=== PATIENT | female | born 1990 | race Caucasian/White ===

== ENCOUNTER 2017-01-31 21:05 | Emergency (ER) | payer BC, MEDICAID, OTHER ==
[2017-01-31 21:31] VITALS: RESP 16; O2SAT 99
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
[2017-01-31] MEDS ORDERED: SULFAMETHOX/TMP 800/160 MG 1 TAB PO ONE (22:28)
[2017-01-31 22:44] VITALS: BP 133/87; PULSE 92; TEMP 97.9
== END 2017-01-31 23:00 | disposition home or self-care (01) ==
LOC: EEVIPCON 21:05
DX: L98.9 Disorder of the skin and subcutaneous tissue, unspecified (principal)

== ENCOUNTER 2017-02-06 06:02 | Inpatient (IN) | payer MEDICAID ==
[2017-02-06 06:25] LABS: % IMMATURE GRANULYOCYTES 0.5 % (0.0-1.1); ADD DIFF? NO; ADD MORPH? NO; ADD SCAN? NO; ATYPICAL LYMPHOCYTE FLAG 0 (0-99); FRAGMENT RBC FLAG 0 (0-99); HEMATOCRIT 37.8 % (38.0-47.0); HEMOGLOBIN 13.4 g/dL (12.6-16.3); LEFT SHIFT FLG 0 (0-99); LIPEMIA HEMOLYSIS FLAG 90 (0-99); MEAN CELL HEMOGLOBIN 31.5 pg (27.9-34.1); MEAN CELL HEMOGLOBIN CONCENTR. 35.4 g/dL (32.4-36.7); MEAN CELL VOLUME 88.9 fL (81.5-99.8); MEAN PLATELET VOLUME 9.1 fL (8.7-11.7); PLATELET CLUMPS FLAG 0 (0-99); PLATELET COUNT 439 10^3/uL (150-400); RED BLOOD CELL COUNT 4.25 10^6/uL (4.18-5.33); RED CELL DISTRIBUTION WIDTH 13.2 % (11.5-15.2)
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
[2017-02-06 06:54] LABS: ALANINE AMINOTRANSFERASE 63 IU/L (9-52); ALBUMIN 4.7 g/dL (3.5-5.0); ALKALINE PHOSPHATASE 82 IU/L (38-126); ANION GAP 21 mEq/L (8-16); ASPARTATE AMINOTRANSFERASE 156 IU/L (14-46); BILIRUBIN,TOTAL 1.4 mg/dL (0.1-1.4); CALCIUM 9.1 mg/dL (8.5-10.4); CARBON DIOXIDE 13 mEq/l (22-31); CHLORIDE 105 mEq/L (97-110); CREATININE 1.3 mg/dL (0.6-1.0); ETHANOL SERUM < 10 mg/dL (0-10); GLOMERULAR FILTRATION RATE 49; GLUCOSE 51 mg/dL (70-100); POTASSIUM 5.1 mEq/L (3.5-5.2); SODIUM 139 mEq/L (134-144); TOTAL PROTEIN 7.4 g/dL (6.3-8.2)
[2017-02-06] MEDS ORDERED: NS 1,000 ML IV ONE ×2 (07:00)
[2017-02-06 08:02] LABS: CK-MB INTERPRETATION NEGATIVE (NEGATIVE)
--- NOTE | 2017-02-06 08:37 | CPEKG ---
Heart Rate: 102 RR Interval: 588 P-R Interval: 120 QRSD Interval: 84 QT Interval: 376 QTC Interval: 490 P Thorndale: 80 QRS Thorndale: 85 T Wave Thorndale: 66 EKG Severity - BORDERLINE ECG - EKG Impression: SINUS TACHYCARDIA EKG Impression: BORDERLINE PROLONGED QT INTERVAL Electronically Signed By: Vic Randolph 06-Feb-2017 08:37:59
[2017-02-06 12:14] LABS: COLOR YELLOW; LEUKOCYTE ESTERASE,URINE NEGATIVE (NEGATIVE); NITRITE,URINE NEGATIVE (NEGATIVE)
[2017-02-06 12:15] LABS: HYALINE CASTS 15-25 /lpf (0-1); MUCUS TRACE /lpf (NONE-1+)
[2017-02-06] MEDS ORDERED: ONDANSETRON DISINTEGRATING 4 MG TAB PO PRN (12:46)
[2017-02-06] MEDS ORDERED: ACETAMINOPHEN 325 MG TAB PO PRN (12:46)
[2017-02-06] MEDS ORDERED: ONDANSETRON 4 MG/2 ML VIAL IVP PRN ×2 (12:46→20:43)
[2017-02-06] MEDS ORDERED: ALBUTEROL INH PREPACK MDI TAKEHOME PRN (12:47)
[2017-02-06] MEDS ORDERED: ALBUTEROL 200 PUFFS/18 GM MDI IH PRN (13:00)
[2017-02-06 13:38] LABS: ANION GAP 13 mEq/L (8-16); CALCIUM 7.7 mg/dL (8.5-10.4); CARBON DIOXIDE 11 mEq/l (22-31); CHLORIDE 111 mEq/L (97-110); CREATININE 0.9 mg/dL (0.6-1.0); GLOMERULAR FILTRATION RATE > 60; GLUCOSE 70 mg/dL (70-100); SODIUM 135 mEq/L (134-144)
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
[2017-02-06] MEDS: NS 1,000 ML IV SCH ×2 (14:26→23:33)
[2017-02-06 15:07] LABS: CK-MB INTERPRETATION NEGATIVE (NEGATIVE)
[2017-02-06] MEDS ORDERED: PROMETHAZINE HCL 25 MG TAB PO PRN (20:42)
[2017-02-06] MEDS ORDERED: PROMETHAZINE HCL 25 MG/ML INJ IVP PRN (20:42)
[2017-02-06] MEDS: PANTOPRAZOLE SODIUM 40 MG TAB PO SCH (20:55)
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
[2017-02-06] MEDS: ADDERALL 10 MG TAB PO SCH (22:16)
[2017-02-06] MEDS: clonazePAM 0.5 MG TAB PO SCH (22:17)
[2017-02-07 05:12] LABS: ANION GAP 11 mEq/L (8-16); CALCIUM 7.9 mg/dL (8.5-10.4); CARBON DIOXIDE 11 mEq/l (22-31); CHLORIDE 112 mEq/L (97-110); CREATININE 0.7 mg/dL (0.6-1.0); GLOMERULAR FILTRATION RATE > 60; GLUCOSE 53 mg/dL (70-100); POTASSIUM 4.5 mEq/L (3.5-5.2); SODIUM 134 mEq/L (134-144)
[2017-02-07 05:32] LABS: CK-MB INTERPRETATION NEGATIVE (NEGATIVE)
[2017-02-07] MEDS: NS 1,000 ML IV SCH (05:50)
[2017-02-07] MEDS: ADDERALL 10 MG TAB PO SCH ×2 (08:45→20:18)
[2017-02-07] MEDS: PANTOPRAZOLE SODIUM 40 MG TAB PO SCH (08:46)
[2017-02-07] MEDS: ENOXAPARIN 40 MG/0.4 ML SYR SC SCH ×2 (08:46→09:06)
[2017-02-07] MEDS: ARIPiprazole 5 MG TAB PO SCH ×2 (08:46→09:07)
[2017-02-07] MEDS: clonazePAM 0.5 MG TAB PO SCH ×2 (08:46→20:18)
[2017-02-07] MEDS ORDERED: NORGESTIMATE ETHINYL ESTRADIOL PO SCH ×2 (09:00)
[2017-02-07] MEDS ORDERED: DEXTROAMPHETAMINE PO SCH (09:00)
[2017-02-07] MEDS ORDERED: AMPHETAMINE PO SCH (09:00)
--- NOTE | 2017-02-07 09:08 | PDINTPN ---
[facility] Progress Note Assessment/Plan: Assessment/plan: * Encephalopathy-still somnolent * Rhabdomyolysis-improved -continue IV fluids * Acute renal failure-resolved * Bipolar disorder * Stress ulcer prophylaxis * DVT PE prophylaxis Subjective: Somnolent. Arousable Objective: Vital Signs Temp Pulse Resp BP Pulse Ox 36.9 C 98 18 93/55 L 97 02/07/17 07:59 02/07/17 07:59 02/07/17 07:59 02/07/17 07:59 02/07/17 07:59 Laboratory Results 02/07/17 04:53 02/06/17 02/07/17 02/08/17 05:59 05:59 05:59 Intake Total 5143 Output Total 500 Balance 4643 Laboratory Results 02/06/17 06:15 02/07/17 04:53 02/07/17 02/07/17 02/06/17 06:22 04:53 13:10 POC Glucose 69 mg/dL L mg/dL (70 - 100) Calcium 7.9 mg/dL L mg/dL (8.5 - 10.4) Creatine Kinase 6050 IU/L H IU/L 7660 IU/L H IU/L (0 - 156) (0 - 156) CK-MB (CK-2) Fraction 92.40 ng/mL H ng/mL 145.00 ng/mL H ng/mL (0 - 3.19) (0 - 3.19) CK-MB (CK-2) % 1.5 % % 1.9 % % (0.0 - 4.0) (0.0 - 4.0) Creatine Kinase Interp NEGATIVE NEGATIVE Physical Exam - Physical Exam General Appearance: other (Somnolent), No alert EENT: PERRL/EOMI, normal ENT inspection Neck: non-tender, full range of motion, supple Respiratory: chest non-tender, lungs clear, normal breath sounds Cardiac/Chest: normal peripheral pulses, regular rate, rhythm Abdomen: normal bowel sounds, non-tender, soft Pelvic Exam: deferred Rectal: deferred ICD10 Worksheet Patient Problems: Problems Problem Status Onset Acute renal failure Acute Encephalopathy acute Acute Rhabdomyolysis Acute Anxiety Acute Major depressive disorder, recurrent episode, moderate with anxious distress Acute
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
[2017-02-07] MEDS: CALCIUM CARBONATE 500 MG CHEWABLE TAB PO PRN (23:40)
--- NOTE | 2017-02-08 08:59 | PDINTPN ---
[facility] Progress Note Assessment/Plan: Assessment/plan: * Encephalopathy-resolved. Patient awake and alert. * Rhabdomyolysis-improved -continue IV fluids -recheck CPK * Acute renal failure-resolved * Bipolar disorder * Stress ulcer prophylaxis * DVT PE prophylaxis * Disposition-patient medically cleared Subjective: Awake and alert and oriented x3. Conversant. In good spirits. Objective: Vital Signs Temp Pulse Resp BP Pulse Ox 36.6 C 88 16 105/63 99 02/08/17 03:58 02/08/17 08:00 02/08/17 08:00 02/08/17 08:00 02/08/17 08:00 Laboratory Results 02/07/17 04:53 02/07/17 02/08/17 02/09/17 05:59 05:59 05:59 Intake Total 5143 350 Output Total 500 Balance 4643 350 Physical Exam - Physical Exam General Appearance: alert, no apparent distress EENT: PERRL/EOMI, normal ENT inspection, pharynx normal, TMs normal Neck: non-tender, full range of motion, supple, normal inspection Respiratory: chest non-tender, lungs clear, normal breath sounds Cardiac/Chest: normal peripheral pulses, regular rate, rhythm Abdomen: normal bowel sounds, non-tender, soft Pelvic Exam: deferred Rectal: deferred Skin: normal color, warm/dry Extremities: normal range of motion, non-tender, normal inspection, normal capillary refill ICD10 Worksheet Patient Problems: Problems Problem Status Onset Acute renal failure Acute Encephalopathy acute Acute Rhabdomyolysis Acute Anxiety Acute Major depressive disorder, recurrent episode, moderate with anxious distress Acute
[2017-02-08] MEDS: ADDERALL 10 MG TAB PO SCH ×2 (09:20→14:57)
[2017-02-08] MEDS: clonazePAM 0.5 MG TAB PO SCH ×2 (09:42→19:38)
[2017-02-08] MEDS: ARIPiprazole 5 MG TAB PO SCH ×2 (09:42→09:46)
[2017-02-08] MEDS: PANTOPRAZOLE SODIUM 40 MG TAB PO SCH (09:43)
[2017-02-08] MEDS: DEXTROAMPHETAMINE PO SCH (09:43)
[2017-02-08] MEDS: AMPHETAMINE PO SCH (09:43)
[2017-02-08] MEDS: NORGESTIMATE ETHINYL ESTRADIOL PO SCH (09:43)
[2017-02-08] MEDS: ENOXAPARIN 40 MG/0.4 ML SYR SC SCH ×2 (09:43→09:47)
[2017-02-08] MEDS: CALCIUM CARBONATE 500 MG CHEWABLE TAB PO PRN ×2 (09:49→13:41)
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
[2017-02-09 01:44] VITALS: RESP 16
[2017-02-09] MEDS: ADDERALL 10 MG TAB PO SCH ×2 (08:07→14:51)
[2017-02-09] MEDS: clonazePAM 0.5 MG TAB PO SCH ×2 (08:08→20:08)
[2017-02-09] MEDS: PANTOPRAZOLE SODIUM 40 MG TAB PO SCH (08:08)
[2017-02-09] MEDS: DEXTROAMPHETAMINE PO SCH (08:08)
[2017-02-09] MEDS: AMPHETAMINE PO SCH (08:08)
[2017-02-09] MEDS: ARIPiprazole 5 MG TAB PO SCH (09:27)
[2017-02-09] MEDS: ENOXAPARIN 40 MG/0.4 ML SYR SC SCH (09:27)
[2017-02-09] MEDS: NORGESTIMATE ETHINYL ESTRADIOL PO SCH (09:28)
[2017-02-09] MEDS: CALCIUM CARBONATE 500 MG CHEWABLE TAB PO PRN (11:26)
[2017-02-09 13:13] LABS: % IMMATURE GRANULYOCYTES 0.3 % (0.0-1.1); ABSOLUTE IMMATURE GRANULOCYTES 0.02 10^3/uL (0.00-0.10); ADD DIFF? NO; ADD MORPH? NO; ADD SCAN? NO; ATYPICAL LYMPHOCYTE FLAG 0 (0-99); FRAGMENT RBC FLAG 0 (0-99); HEMATOCRIT 38.3 % (38.0-47.0); HEMOGLOBIN 12.9 g/dL (12.6-16.3); LEFT SHIFT FLG 0 (0-99); LIPEMIA HEMOLYSIS FLAG 80 (0-99); MEAN CELL HEMOGLOBIN 31.3 pg (27.9-34.1); MEAN CELL HEMOGLOBIN CONCENTR. 33.7 g/dL (32.4-36.7); PLATELET CLUMPS FLAG 20 (0-99); PLATELET COUNT 336 10^3/uL (150-400); RED BLOOD CELL COUNT 4.12 10^6/uL (4.18-5.33); RED CELL DISTRIBUTION WIDTH 13.9 % (11.5-15.2)
[2017-02-09 13:38] LABS: ALANINE AMINOTRANSFERASE 87 IU/L (9-52); ALBUMIN 3.8 g/dL (3.5-5.0); ALKALINE PHOSPHATASE 54 IU/L (38-126); ANION GAP 8 mEq/L (8-16); ASPARTATE AMINOTRANSFERASE 114 IU/L (14-46); BILIRUBIN,TOTAL 0.3 mg/dL (0.1-1.4); CALCIUM 8.7 mg/dL (8.5-10.4); CARBON DIOXIDE 29 mEq/l (22-31); CHLORIDE 99 mEq/L (97-110); CREATININE 0.5 mg/dL (0.6-1.0); GLOMERULAR FILTRATION RATE > 60; GLUCOSE 103 mg/dL (70-100); POTASSIUM 3.6 mEq/L (3.5-5.2); SODIUM 136 mEq/L (134-144); TOTAL PROTEIN 6.5 g/dL (6.3-8.2)
[2017-02-09 15:03] LABS: CK-MB INTERPRETATION NEGATIVE (NEGATIVE)
[2017-02-09 15:15] LABS: CREATINE KINASE-MB FRACTION 8.53 ng/mL (0-3.19)
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
[2017-02-09 20:09] VITALS: BP 121/79; PULSE 100; TEMP 97.9; O2SAT 97
== END 2017-02-09 21:00 | DRG 885 ==
LOC: EDUNIT# → EEVIPCON 06:02 → F2N 08:45
PROVIDERS: ADMIT Internal Medicine; ATTEND Family Medicine
DX: F31.2 Bipolar disorder, current episode manic severe with psychotic features (principal); M62.82 Rhabdomyolysis; N17.9 Acute kidney failure, unspecified; E87.2 Acidosis; S80.11XA Contusion of right lower leg, initial encounter; S80.12XA Contusion of left lower leg, initial encounter; X58.XXXA Exposure to other specified factors, initial encounter; Y92.9 Unspecified place or not applicable
CPT/HCPCS: 80305; 97161-GP; G0480; J1650